=== PATIENT | female | born 1990 | race Caucasian/White ===

== ENCOUNTER 2016-07-10 10:02 | Emergency (ER) | payer OTHER ==
[~2016-07-10] VITALS: Ht 157.5 cm; Wt 62.0 kg
[~2016-07-10 10:02] MED LIST: SUBO8MIS SL; XANA0.5T PO
[2016-07-10] MEDS ORDERED: HYDR-3133 PO (10:29)
[2016-07-10] MEDS ORDERED: NAPR500T PO (10:30)
[2016-07-10] MEDS ORDERED: LORazepam 2 MG/ML VIAL IV ONE (10:30)
--- NOTE | 2016-07-10 10:30 | PD ---
HPI Chief Complaint: Anxiety Time Seen by Provider: 10:17 Travel History International Travel<30 days: No Contact w/Intl Traveler<30days: No Traveled to known affect area: No History of Present Illness HPI This is a 26-year-old female with a history of anxiety disorder, substance abuse , who presents today stating she severely anxious and needs to talk to the psychiatric team. She also reports being depressed. The patient denies any suicidal or homicidal ideation. She states she's gets severe stress at home. She has a son who has ADHD and OCD and 2 other children for which she cares for on her own. Patient is extremely tearful and emotionally labile. She'll cry and then laugh. She states no one believes her and they all laugh at her when she says she needs help. She reports she's been drinking 2 bottles of wine at night to help her calm down. She also reports using cocaine 2 days ago. She states she is willing to come in voluntarily to be evaluated. PFSH Past Medical History Asthma: Yes Blood Disorders: No Bipolar Disorder: Yes Anxiety: Yes Depression: Yes Cancer: No Cardiovascular Problems: Yes (VSD REPAIR) Diabetes: No Diminished Hearing: No Genitourinary: No Headaches: Yes Hepatitis: Yes (HEP C) Immune Disorder: No Musculoskeletal: No Psychiatric: Yes Reproductive: No Immunizations Current: Yes Seizures: Yes ( CHILD) : 4 Para: 3 Miscarriage: 1 : 0 Dilation and Curettage (D&C): Yes Past Surgical History Cardiac Surgery: Yes (COARCTATION OF AORTA SURGICAL REPAIR INFANT X 2) Other Surgery: Yes (R UPPER ARM ARTERIAL REPAIR) Family History Family Hypercholesterolemia: Yes Social History Alcohol Use: Yes (SOCIAL) Tobacco Use: Yes (1/2--1 PACK PER DAY) Substance Use: Yes Allergies-Medications (Allergen,Severity, Reaction): Coded Allergies: No Known Allergies (Verified , 07/10/16) Reported Meds & Prescriptions Reported Meds & Active Scripts Active Reported Naproxen 500 Mg Tab 500 Mg PO Q6HR PRN Hydroxyzine HCl 25 Mg Tab 25 Mg PO QID PRN Review of Systems Except as stated in HPI: all other systems reviewed are Neg General / Constitutional: No: Fever, Chills HENT: No: Headaches Cardiovascular: Positive: Palpitations, No: Chest Pain or Discomfort Respiratory: No: Cough, Shortness of Breath Gastrointestinal: No: Nausea, Vomiting, Abdominal Pain Musculoskeletal: No: Weakness, Pain Neurologic: No: Weakness, Headache, Change in Mentation Psychiatric: Positive: Anxiety, Depression, No: Suicidal Ideations, Homicidal Ideation Physical Exam Narrative GENERAL: Well-developed well-nourished female who appears very anxious. SKIN: Focused skin assessment warm/dry. HEAD: Atraumatic. Normocephalic. EYES: No scleral icterus. No injection or drainage. ENT: Mucous membranes pink and moist. NECK: Trachea midline. No JVD. CARDIOVASCULAR: Tachycardia with a rate of 115. No murmur appreciated. RESPIRATORY: No accessory muscle use. Clear to auscultation. Breath sounds equal bilaterally. GASTROINTESTINAL: Abdomen soft, non-tender, nondistended. MUSCULOSKELETAL: No obvious deformities. No clubbing. No cyanosis. No edema. Patient does has there is bruising to her bilateral lower extremities NEUROLOGICAL: Awake and alert. No obvious cranial nerve deficits. Motor grossly within normal limits. Normal speech. PSYCHIATRIC: Emotionally labile. Data Data Orders Complete Blood Count With Diff (07/10/16 10:24) Comprehensive Metabolic Panel (07/10/16 10:24) Psych Screen (07/10/16 10:24) Lorazepam Inj (Ativan Inj) (07/10/16 10:30) Drug Screen, Random Urine (07/10/16 10:24) Alcohol (Ethanol) (07/10/16 10:24) Labs Laboratory Tests Test 07/10/16 07/10/16 10:25 11:50 White Blood Count 10.6 TH/MM3 Red Blood Count 5.02 MIL/MM3 Hemoglobin 15.3 GM/DL Hematocrit 43.8 % Mean Corpuscular Volume 87.3 FL Mean Corpuscular Hemoglobin 30.4 PG Mean Corpuscular Hemoglobin 34.8 % Concent Red Cell Distribution Width 12.8 % Platelet Count 226 TH/MM3 Mean Platelet Volume 7.8 FL Neutrophils (%) (Auto) 75.1 % Lymphocytes (%) (Auto) 9.9 % Monocytes (%) (Auto) 13.5 % Eosinophils (%) (Auto) 0.6 % Basophils (%) (Auto) 0.9 % Neutrophils # (Auto) 8.0 TH/MM3 Lymphocytes # (Auto) 1.0 TH/MM3 Monocytes # (Auto) 1.4 TH/MM3 Eosinophils # (Auto) 0.1 TH/MM3 Basophils # (Auto) 0.1 TH/MM3 CBC Comment DIFF FINAL Differential Comment Sodium Level 140 MEQ/L Potassium Level 3.8 MEQ/L Chloride Level 106 MEQ/L Carbon Dioxide Level 24.3 MEQ/L Anion Gap 10 MEQ/L Blood Urea Nitrogen 15 MG/DL Creatinine 0.79 MG/DL Estimat Glomerular Filtration 87 ML/MIN Rate Random Glucose 104 MG/DL Calcium Level 9.2 MG/DL Total Bilirubin 2.1 MG/DL Aspartate Amino Transf 162 U/L (AST/SGOT) Alanine Aminotransferase 95 U/L (ALT/SGPT) Alkaline Phosphatase 98 U/L Total Protein 8.0 GM/DL Albumin 4.5 GM/DL Ethyl Alcohol Level LESS THAN 3 MG/DL Urine Opiates Screen NEG Urine Barbiturates Screen NEG Urine Amphetamines Screen NEG Urine Benzodiazepines Screen NEG Urine Cocaine Screen POS Urine Cannabinoids Screen NEG MDM Medical Decision Making Medical Screen Exam Complete: Yes Emergency Medical Condition: Yes Differential Diagnosis Depression versus substance induced mood disorder versus anxiety Narrative Course 26-year-old female with a history of anxiety, substance abuse, presents here requesting to see a psychiatric screener. Patient states that she is depressed and has acute life stressors. She is not suicidal or homicidal. At this point she does not meet Mcintosh act criteria. She is willing to come in voluntarily to be evaluated. Her liver enzymes are elevated which would likely be secondary to her alcohol abuse. Alcohol level is negative. Urine tox was positive for cocaine which she admitted to. She will be medically cleared for psychiatric evaluation. Diagnosis Primary Impression: Anxiety Additional Impressions: Depression Polysubstance abuse medically clear Jeyson Muhammad MD July 10, 2016 10:30
[2016-07-10 10:49] LABS: BASOPHIL # 0.1 TH/MM3 (0-0.2); BASOPHIL % 0.9 % (0.0-2.0); EOSINOPHIL # 0.1 TH/MM3 (0-0.4); EOSINOPHIL % 0.6 % (0.0-4.0); HEMATOCRIT 43.8 % (35.0-46.0); HEMO FLAGS DIFF FINAL; LYMPH % 9.9 % (9.0-44.0); MEAN CELL VOLUME 87.3 FL (80.0-100.0); MEAN CORPUSCULAR HEMOGLOBIN 30.4 PG (27.0-34.0); MEAN CORPUSCULAR HGB CONC 34.8 % (32.0-36.0); MONO % 13.5 % (0.0-8.0); NEUT % 75.1 % (16.0-70.0); PLATELET COUNT 226 TH/MM3 (150-450); RED BLOOD COUNT 5.02 MIL/MM3 (4.00-5.30); RED CELL DISTRIBUTION WIDTH 12.8 % (11.6-17.2); WHITE BLOOD COUNT 10.6 TH/MM3 (4.0-11.0)
[2016-07-10 11:04] LABS: ANION GAP 10 MEQ/L (5-15); AST (GOT) 162 U/L (15-37); BICARBONATE 24.3 MEQ/L (21.0-32.0); BLOOD UREA NITROGEN 15 MG/DL (7-18); CHLORIDE 106 MEQ/L (98-107); GLOMERULAR FILTRATION RATE 87 ML/MIN (>89); POTASSIUM 3.8 MEQ/L (3.5-5.1); SODIUM (NA) 140 MEQ/L (136-145)
[2016-07-10 11:07] LABS: ALKALINE PHOSPHATASE 98 U/L (45-117); ALT (GPT) 95 U/L (10-53); TOTAL BILIRUBIN ADULT 2.1 MG/DL (0.2-1.0)
[2016-07-10 12:23] LABS: AMPHETAMINE, URINE NEG (NEG); BARBITURATES, URINE NEG (NEG); COCAINE, URINE POS (NEG)
[2016-07-10] MEDS ORDERED: LORazepam 1 MG TAB PO PRN (12:45)
[2016-07-10] MEDS ORDERED: LORazepam 2 MG TAB PO PRN (12:45)
[2016-07-10] MEDS ORDERED: FLUMAZENIL 0.5 MG/5 ML VIAL IV PUSH PRN (12:45)
[2016-07-10] MEDS ORDERED: LORazepam 2 MG/ML VIAL IV PUSH PRN ×4 (12:45)
[2016-07-10] MEDS ORDERED: OLANZapine IM 10 MG VIAL IM ONE (14:00)
[2016-07-10 19:12] VITALS: BP 121/83; PULSE 86; RESP 16; TEMP 97.4; O2SAT 98
== END 2016-07-10 23:57 | disposition home or self-care (01) ==
LOC: NEPE 10:02 → NEPJ 23:57
DX: Z02.89 Encounter for other administrative examinations (principal); F41.9 Anxiety disorder, unspecified; F32.9 Major depressive disorder, single episode, unspecified; F19.10 Other psychoactive substance abuse, uncomplicated; F17.200 Nicotine dependence, unspecified, uncomplicated; Z87.09 Personal history of other diseases of the respiratory system; Z86.59 Personal history of other mental and behavioral disorders; Z86.79 Personal history of other diseases of the circulatory system; Z86.19 Personal history of other infectious and parasitic diseases
CPT/HCPCS: 80053; 80307; 85025; 96372; 96374; 99284; J2060

== ENCOUNTER 2016-09-12 18:56 | Emergency (ER) | payer OTHER ==
[~2016-09-12] VITALS: Ht 157.5 cm; Wt 59.6 kg
[~2016-09-12 18:56] MED LIST changes: +HYDR-3133 PO; +NAPR500T PO; -SUBO8MIS SL; -XANA0.5T PO
[2016-09-12 19:00] VITALS: BP 151/100; PULSE 71; RESP 16; TEMP 98.3; O2SAT 98
--- NOTE | 2016-09-12 19:35 | PD ---
HPI Chief Complaint: Complaint Time Seen by Provider: 19:35 Travel History International Travel<30 days: No Contact w/Intl Traveler<30days: No Traveled to known affect area: No History of Present Illness HPI 26-year-old female with history of kidney stones, substance abuse currently on Suboxone, depression anxiety, presents to the emergency department for evaluation of urinary urgency, decreased urinary output, hematuria, and pain with urination. She is also having some right flank pain. States the pain is different from when she had kidney stones. Denies any vaginal bleeding. Denies any chance of . Denies any fever or chills. port. She is requesting to speak to a psychiatrist because she is depressed as her dad is actively dying. She denies suicidal homicidal ideations. She states that she just needs somebody to talk to. PFSH Past Medical History Asthma: Yes Blood Disorders: No Bipolar Disorder: Yes Anxiety: Yes Depression: Yes Cancer: No Cardiovascular Problems: Yes (electrical conduction, VSD, Aorta repair) Diabetes: No Diminished Hearing: No Gastrointestinal Disorders: No Genitourinary: No Headaches: Yes Hepatitis: Yes (HEP C) Immune Disorder: No Implanted Vascular Access Dvce: No Musculoskeletal: No Psychiatric: Yes Reproductive: No Immunizations Current: Yes Seizures: Yes ( CHILD) Tetanus Vaccination: < 5 Years Influenza Vaccination: No ?: Not LMP: Depo shot : 4 Para: 3 Miscarriage: 1 : 0 Dilation and Curettage (D&C): Yes Past Surgical History Cardiac Surgery: Yes (COARCTATION OF AORTA SURGICAL REPAIR X 2 and VSD) Other Surgery: Yes (R UPPER ARM ARTERIAL REPAIR) Family History Family Hypercholesterolemia: Yes Social History Alcohol Use: Yes (SOCIAL) Tobacco Use: Yes (1/2--1 PACK PER DAY) Substance Use: No Allergies-Medications (Allergen,Severity, Reaction): Coded Allergies: No Known Allergies (Verified , 07/10/16) Reported Meds & Prescriptions Reported Meds & Active Scripts Active Keflex (Cephalexin) 500 Mg Cap 500 Mg PO Q12H 7 Days Naprosyn (Naproxen) 500 Mg Tab 500 Mg PO BID PRN Reported Ibuprofen 800 Mg Tab 800 Mg PO BID Adipex-P (Phentermine HCl) 37.5 Mg Tab 37.5 Mg PO DAILY Suboxone Sublingual Film (Buprenorphine-Naloxone Sublingual Film) 8-2 Mg Film 1 Film SL BID Unique ID number required: Buprenorphine (Buprenorphine HCl) 8 Mg Subl 8 Mg SL BID Hydroxyzine HCl 25 Mg Tab 25 Mg PO QID PRN Review of Systems Except as stated in HPI: all other systems reviewed are Neg Physical Exam Narrative GENERAL: Well-nourished, well-developed female patient in no acute distress. SKIN: Focused skin assessment warm/dry. HEAD: Normocephalic. EYES: No scleral icterus. No injection or drainage. NECK: Supple, trachea midline. No JVD or lymphadenopathy. CARDIOVASCULAR: Regular rate and rhythm without murmurs, gallops, or rubs. RESPIRATORY: Breath sounds equal bilaterally. No accessory muscle use. GASTROINTESTINAL: Abdomen soft, non-tender, nondistended. No guarding. No rebound tenderness. MUSCULOSKELETAL: No cyanosis, or edema. No CVA tenderness. BACK: Nontender without obvious deformity. No CVA tenderness. Data Data Last Documented VS Vital Signs Date Time Temp Pulse Resp B/P Pulse Ox O2 Delivery O2 Flow Rate FiO2 09/12/16 22:20 78 20 141/89 100 09/12/16 19:00 98.3 Room Air Orders Iv Access Insert/Monitor (09/12/16 19:34) Complete Blood Count With Diff (09/12/16 19:34) Basic Metabolic Panel (Bmp) (09/12/16 19:34) Urinalysis - C+S If Indicated (09/12/16 19:34) Sodium Chlor 0.9% 1000 Ml Inj (Ns 1000 M (09/12/16 19:45) Ketorolac Inj (Toradol Inj) (09/12/16 19:45) Urine Culture (09/12/16 20:00) Ceftriaxone Inj (Rocephin Inj) (09/12/16 21:45) Sodium Chloride 0.9% Flush (Ns Flush) (09/13/16 09:00) Sodium Chloride 0.9% Flush (Ns Flush) (09/12/16 21:45) Labs Laboratory Tests Test 09/12/16 20:00 White Blood Count 9.7 TH/MM3 Red Blood Count 4.88 MIL/MM3 Hemoglobin 15.0 GM/DL Hematocrit 43.8 % Mean Corpuscular Volume 89.7 FL Mean Corpuscular Hemoglobin 30.6 PG Mean Corpuscular Hemoglobin 34.1 % Concent Red Cell Distribution Width 12.9 % Platelet Count 292 TH/MM3 Mean Platelet Volume 7.1 FL Neutrophils (%) (Auto) 70.8 % Lymphocytes (%) (Auto) 17.5 % Monocytes (%) (Auto) 9.2 % Eosinophils (%) (Auto) 1.8 % Basophils (%) (Auto) 0.7 % Neutrophils # (Auto) 6.9 TH/MM3 Lymphocytes # (Auto) 1.7 TH/MM3 Monocytes # (Auto) 0.9 TH/MM3 Eosinophils # (Auto) 0.2 TH/MM3 Basophils # (Auto) 0.1 TH/MM3 CBC Comment DIFF FINAL Differential Comment Urine Color YELLOW Urine Turbidity HAZY Urine pH 6.5 Urine Specific [place] 1.020 Urine Protein 30 mg/dL Urine Glucose (UA) NEG mg/dL Urine Ketones NEG mg/dL Urine Occult Blood LARGE Urine Nitrite NEG Urine Bilirubin NEG Urine Urobilinogen 4.0 MG/DL Urine Leukocyte Esterase SMALL Urine RBC /hpf Urine WBC 9 /hpf Urine Squamous Epithelial 4 /hpf Cells Urine Amorphous Sediment RARE Urine Bacteria MANY /hpf Urine Hyaline Casts 3 /lpf Urine Mucus FEW /lpf Microscopic Urinalysis Comment CULTURE INDICATED Sodium Level 141 MEQ/L Potassium Level 3.2 MEQ/L Chloride Level 106 MEQ/L Carbon Dioxide Level 30.0 MEQ/L Anion Gap 5 MEQ/L Blood Urea Nitrogen 10 MG/DL Creatinine 0.79 MG/DL Estimat Glomerular Filtration 87 ML/MIN Rate Random Glucose 92 MG/DL Calcium Level 9.1 MG/DL MDM Medical Decision Making Medical Screen Exam Complete: Yes Emergency Medical Condition: Yes Medical Record Reviewed: Yes Differential Diagnosis Cystitis versus pyelonephritis versus renal colic versus renal calculi Narrative Course 26-year-old female presents to the emergency department for evaluation. Patient appears without distress. CBC and BMP are without acute concern. Patient does have mild hypokalemia 3.2. This was repleted here in the emergency department. Urinalysis is hazy with 30 protein year, large occult blood, small leukocyte esterase, innumerable RBC, 9 to be WBC, many bacteria, few mucus. Culture is indicated. I excised the patient that she made eat have a kidney stone that is working its way down causing this hematuria. She does not believe so as it is different from previous kidney stones. I will start her on oral antibiotics for UTI. I have also explained to her that she is welcome to stay to speak to a psychiatrist however this will not be until the morning. She states that she does not need to stay here for that. She has no suicidal or homicidal ideations, she states she is "just sad." Patient agrees to return immediately with any acute worsening of symptoms. She will be discharged at this time. Diagnosis Primary Impression: UTI (urinary tract infection) Qualified Code: N39.0 - Urinary tract infection with hematuria, site unspecified Additional Impression: Renal colic on right side Referrals: Primary Care Physician Patient Instructions: General Instructions, Urinary Tract Infection in Women ( ED) Additional Instructions: Maintain adequate oral hydration Follow-up with primary care provider Return immediately with any acute worsening of symptoms Med/Other Pt SpecificInfo: Prescription(s) given Scripts Cephalexin (Keflex)500 Mg [id number] Mg PO Q12H 7 Days Ref 0 Prov:Ingrid Mcadams 09/12/16 Naproxen (Naprosyn)500 Mg [id number] Mg PO BID PRN (PAIN SCALE 1 TO 10) #30 TAB Ref 0 Prov:Ingrid Mcadams 09/12/16 Disposition: 01 DISCHARGE HOME Condition: Stable Ingrid Mcadams Sep 12, 2016 19:35
[2016-09-12] MEDS ORDERED: SODIUM CHLOR 0.9% 1000 ML INJ 1,000 ML IV ONE (19:45)
[2016-09-12] MEDS ORDERED: KETOROLAC TROMETHAMINE 30 MG/ML (IVP) VIAL IV PUSH ONE (19:45)
[2016-09-12] MEDS ORDERED: BUPR8SUB SL (19:46)
[2016-09-12] MEDS ORDERED: SUBO8MIS SL (19:46)
[2016-09-12] MEDS ORDERED: ADIP37.55 PO (19:48)
[2016-09-12] MEDS ORDERED: IBUP800T23 PO (19:49)
[2016-09-12 20:18] LABS: BACTERIA, URINE MANY /hpf; BLOOD, URINE LARGE (NEG); COMMENT (UR) CULTURE INDICATED; CULTURE IF INDICATED CULTURE INDICATED; GLUCOSE,URINE NEG (NEG); HYALINE CAST, URINE 3 /lpf (RARE); KETONE, URINE NEG (NEG); MUCUS URINE FEW /lpf (OCC); NITRITE,URINE NEG (NEG); PH, URINE 6.5 (5.0-8.5); SQUAMOUS EPITHELIAL CELL URINE 4 /hpf (0-5); URINE COLOR YELLOW (YELLW/STRAW)
[2016-09-12 20:29] LABS: AUTOMATED NEUTROPHIL # 6.9 TH/MM3 (1.8-7.7); BASOPHIL # 0.1 TH/MM3 (0-0.2); BASOPHIL % 0.7 % (0.0-2.0); EOSINOPHIL # 0.2 TH/MM3 (0-0.4); EOSINOPHIL % 1.8 % (0.0-4.0); HEMATOCRIT 43.8 % (35.0-46.0); HEMO FLAGS DIFF FINAL; LYMPH % 17.5 % (9.0-44.0); LYMPHOCYTE # 1.7 TH/MM3 (1.0-4.8); MEAN CELL VOLUME 89.7 FL (80.0-100.0); MEAN CORPUSCULAR HEMOGLOBIN 30.6 PG (27.0-34.0); MEAN CORPUSCULAR HGB CONC 34.1 % (32.0-36.0); MONO % 9.2 % (0.0-8.0); NEUT % 70.8 % (16.0-70.0); PLATELET COUNT 292 TH/MM3 (150-450); RED BLOOD COUNT 4.88 MIL/MM3 (4.00-5.30); RED CELL DISTRIBUTION WIDTH 12.9 % (11.6-17.2); WHITE BLOOD COUNT 9.7 TH/MM3 (4.0-11.0)
[2016-09-12 20:47] LABS: POTASSIUM 3.2 MEQ/L (3.5-5.1)
[2016-09-12] MEDS ORDERED: CEPH-460 PO (21:24)
[2016-09-12] MEDS ORDERED: NAPR500 PO (21:24)
[2016-09-12] MEDS ORDERED: LIDOCAINE HCL 1% PF 30 ML VIAL XX ONE (21:30)
[2016-09-12] MEDS ORDERED: cefTRIAXone INJ 1,000 MG in SODIUM CHLORIDE 0.9% INJ 100 ML IV STA (21:30)
[2016-09-12 21:36] VITALS: RESP 16
[2016-09-12] MEDS ORDERED: SODIUM CHLORIDE FLUSH PRN IV FLUSH (21:45)
[2016-09-12] MEDS ORDERED: cefTRIAXone 1,000 MG/NS 100 ML IV ONE ×2 (21:45)
[2016-09-12 22:20] VITALS: BP 141/89
[2016-09-13] MEDS ORDERED: SODIUM CHLORIDE FLUSH BID IV FLUSH SCH (09:00)
== END 2016-09-12 22:23 | disposition home or self-care (01) ==
LOC: NEPD 18:56
DX: N39.0 Urinary tract infection, site not specified (principal); B96.20 Unspecified Escherichia coli [E. coli] as the cause of diseases classified elsewhere; R31.9 Hematuria, unspecified
CPT/HCPCS: 80048; 81001; 85025; 87077; 87086; 87186; 96361; 96374; 96375; 99284; J0696; J1885; J7030

== ENCOUNTER 2017-05-19 14:17 | Emergency (ER) | payer OTHER ==
[~2017-05-19] VITALS: Ht 157.5 cm; Wt 49.5 kg
[~2017-05-19 14:17] MED LIST changes: +ADIP37.55 PO; +BUPR8SUB SL; +CEPH-460 PO; +CLIN300C5 PO; +IBUP1TAB7 PO; +NAPR500 PO; -NAPR500T PO; +SUBO8MIS SL
[2017-05-19 15:15] VITALS: BP 169/127; PULSE 99; RESP 16; TEMP 98; O2SAT 100
[2017-05-19 15:45] VITALS: BP 148/101; PULSE 91; RESP 16; O2SAT 100
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
[2017-05-19 16:10] LABS: AUTOMATED NEUTROPHIL # 4.8 TH/MM3 (1.8-7.7); BASOPHIL # 0.1 TH/MM3 (0-0.2); BASOPHIL % 1.1 % (0.0-2.0); EOSINOPHIL # 0.1 TH/MM3 (0-0.4); EOSINOPHIL % 1.3 % (0.0-4.0); HEMATOCRIT 43.3 % (35.0-46.0); HEMOGLOBIN 15.2 GM/DL (11.6-15.3); LYMPH % 17.8 % (9.0-44.0); LYMPHOCYTE # 1.2 TH/MM3 (1.0-4.8); MEAN CELL VOLUME 88.5 FL (80.0-100.0); MEAN CORPUSCULAR HEMOGLOBIN 31.2 PG (27.0-34.0); MEAN CORPUSCULAR HGB CONC 35.2 % (32.0-36.0); MEAN PLATELET VOLUME 7.2 FL (7.0-11.0); MONO % 5.6 % (0.0-8.0); MONOCYTE # 0.4 TH/MM3 (0-0.9); NEUT % 74.2 % (16.0-70.0); PLATELET COUNT 286 TH/MM3 (150-450); RED BLOOD COUNT 4.88 MIL/MM3 (4.00-5.30); RED CELL DISTRIBUTION WIDTH 12.8 % (11.6-17.2); WHITE BLOOD COUNT 6.5 TH/MM3 (4.0-11.0)
[2017-05-19 16:39] LABS: BICARBONATE 25.3 MEQ/L (21.0-32.0); BLOOD UREA NITROGEN 11 MG/DL (7-18); CALCIUM 9.1 MG/DL (8.5-10.1); CHLORIDE 107 MEQ/L (98-107); CREATININE 0.59 MG/DL (0.50-1.00); GLOMERULAR FILTRATION RATE 122 ML/MIN (>89); GLUCOSE,RANDOM 79 MG/DL (74-106); SODIUM (NA) 139 MEQ/L (136-145)
== END 2017-05-19 18:42 ==
LOC: NEPD 14:17
DX: T74.21XA Adult sexual abuse, confirmed, initial encounter (principal); F19.10 Other psychoactive substance abuse, uncomplicated; B19.20 Unspecified viral hepatitis C without hepatic coma; J45.909 Unspecified asthma, uncomplicated; F31.9 Bipolar disorder, unspecified; F41.9 Anxiety disorder, unspecified; F17.200 Nicotine dependence, unspecified, uncomplicated
CPT/HCPCS: 80048; 80307; 85025; 99285